=== PATIENT | male | born 1980 | race Caucasian/White ===

== ENCOUNTER 2017-04-06 06:29 | Day surgery (SDC) | payer OTHER ==
[2017-04-05 10:36] VITALS: BMI 62.2
[2017-04-06 07:11] VITALS: BP 152/114; PULSE 100; TEMP 99.5
[2017-04-06] MEDS ORDERED: BUPIVACAINE HCL/PF 0.5% (5MG/ML) 10 ML VIAL ONE (07:20)
[2017-04-06] MEDS ORDERED: GENTAMICIN SO4 80 MG/2 ML VIAL ONE (07:20)
== END 2017-04-06 07:36 | disposition home or self-care (01) ==
LOC: JASU-SURG 06:29
PROVIDERS: ATTEND Surgery
PROC: 0DV60CZ Restriction of Stomach with Extraluminal Device, Open Approach (ICD-10-PCS; principal; 2017-04-06)
DX: Z53.8 Procedure and treatment not carried out for other reasons (principal)
CPT/HCPCS: 86850; 86900; 86901